=== PATIENT | male | born 2000 | race Caucasian/White ===

== ENCOUNTER 2021-04-23 10:46 | Emergency (ER) | payer OTHER ==
[~2021-04-23] VITALS: Ht 175.3 cm; Wt 75.0 kg
[2021-04-23 11:01] VITALS: BP 134/79; TEMP 98.1
[2021-04-23 13:51] LABS: BASO % 0.3 % (0.0-2.0); EOS % 0.1 % (0-4.0); GRAN # 12.8 K/mm3 (1.4-6.5); GRAN % 89.1 % (42.2-75.2); HEMATOCRIT 41.2 % (42.0-52.0); HEMOGLOBIN 14.4 g/dl (13.5-18.0); LYMPH # 0.7 K/mm3 (1.2-3.4); MEAN CELL VOLUME 84 fl (80.0-100.0); MEAN CORPUSCULAR HEMOGLOBIN 29 pg (27.0-31.0); MEAN CORPUSCULAR HGB CONC 35 g/dl (33.0-37.0); MEAN PLATELET VOLUME 10.4 fl (7.4-10.4); MONO # 0.7 K/mm3 (0.1-0.6); PLATELET COUNT 215 K/mm3 (130-400); RED BLOOD COUNT 4.89 M/mm3 (4.20-5.60); REDCELL DISTRIBUTION WIDTH-CV 12.1 % (11.5-14.5)
[2021-04-23 14:10] LABS: ALBUMIN 4.9 gm/dL (3.5-5.0); BILIRUBIN,TOTAL 0.7 mg/dL (0.2-1.2); CREATININE, serum 1.35 mg/dL (0.72-1.25); POTASSIUM 4.1 mmol/L (3.5-4.5)
[2021-04-23] MEDS ORDERED: PERCOCET 325 MG1 TA2 PO (15:18)
[2021-04-23] MEDS ORDERED: ZOFRAN ODT4 MG PO (15:18)
[2021-04-23] MEDS ORDERED: CEPHALEXIN500 M1 PO (15:18)
[2021-04-23 15:47] VITALS: PULSE 65
== END 2021-04-23 15:47 | disposition home or self-care (01) ==
LOC: COL.ER 10:46
PROVIDERS: Personal Emergency Response Attendant
DX: N20.0 Calculus of kidney (principal)
CPT/HCPCS: J1885; J2270; J2405; J7030